=== PATIENT | female | born 1935 | race Caucasian/White ===

== ENCOUNTER 2024-01-10 04:00 | Inpatient (IN) | payer SELFPAY ==
[~2024-01-10] VITALS: Ht 129.5 cm; Wt 49.9 kg
[2024-01-10 05:05] LABS: HEMATOCRIT. 40.9 % (36.0-48.0); HEMOGLOBIN. 13.8 g/dL (12.0-16.0); MEAN CORPUSCULAR HEMOGLOBIN 29.3 pg (28.0-32.0); MEAN CORPUSCULAR HGB CONC 33.8 g/dL (31.0-37.0); MEAN CORPUSCULAR VOLUME 86.7 fL (81.0-99.0); MEAN PLATELET VOLUME 8.9 fl (7.4-10.4); PLATELET 317 x1000/uL (130-400); RED BLOOD CELL COUNT 4.72 mill/uL (4.2-5.4); RED CELL DISTRIBUTION WIDTH 13.5 % (11.6-14.6); WHITE BLOOD COUNT 11.4 x1000/uL (4.5-11.0)
[2024-01-10 05:14] LABS: CARBON DIOXIDE 30 mEq/L (21-32); CHLORIDE 94 mEq/L (98-107); POTASSIUM 4.6 mEq/L (3.5-5.1); SODIUM 130 mEq/L (136-145)
[2024-01-10 05:15] LABS: CALCIUM 9.9 mg/dL (8.7-10.4)
[2024-01-10 05:19] LABS: CREATININE 0.8 mg/dL (0.6-1.0)
[2024-01-10 05:20] LABS: GLUCOSE 177 mg/dL (70-105); UREA NITROGEN BLOOD 18 mg/dL (9-23)
[2024-01-10 05:21] LABS: ALANINE AMINOTRANSFERASE 27 IU/L (10-49); ALBUMIN 4.3 g/dL (3.2-4.8); ASPARTATE AMINOTRANSFERASE 32 IU/L (<34)
[2024-01-10 05:22] LABS: BILIRUBIN DIRECT 0.4 mg/dL (<=3.0); PROTEIN TOTAL 7.6 g/dL (6.0-8.3); TROPONIN I HIGH SENSITIVITY 28 ng/L (3.0-34)
[2024-01-10 05:32] LABS: BG BASE EXCESS 4.7 mmol/L (-2.0-2.0); BG CARBOXYHEMOGLOBIN 0.4 % (0.5-1.5); BG DEOXYHEMOGLOBIN 4.3 % (0.0-5.0); BG FRACTION INSPIRED OXYGEN 32; BG HCO3 ACT 32.5 mmol/L (22.0-26.0); BG METHEMOGLOBIN 0.2 % (0.0-1.5); BG OXYGEN SATURATION 95.7 % (92.0-98.5); BG OXYHEMOGLOBIN 95.1 % (94.0-97.0); BG PCO2 63.8 mmHg (35.0-45.0); BG PH 7.325 (7.350-7.450); BG PO2 84.6 mmHg (75.0-100.0); BG SAMPLE SITE RIGHT BRACHIAL; BG TOTAL HEMOGLOBIN 12.9 g/dL (12.0-18.0); BG VENT MODE NASAL CANNULA
[2024-01-10] MEDS: METHYLPREDNISOLONE SOD SUCC 125MG/2ML (ACT-O-VIAL) IV NR (05:33)
[2024-01-10 05:45] LABS: DIFFERENTIAL COMMENT 1
[2024-01-10 05:59] VITALS: RESP 20
[2024-01-10 06:08] VITALS: RESP 20
[2024-01-10] MEDS: IPRATROPIUM/ALBUTEROL 0.5-3(2.5)MG/3ML NEB HHN NR (06:08)
[2024-01-10 09:00] VITALS: RESP 18
[2024-01-10 09:26] LABS: BG BASE EXCESS 4.9 mmol/L (-2.0-2.0); BG CARBOXYHEMOGLOBIN 0.5 % (0.5-1.5); BG FRACTION INSPIRED OXYGEN 60; BG HCO3 ACT 31.9 mmol/L (22.0-26.0); BG METHEMOGLOBIN 0.1 % (0.0-1.5); BG OXYHEMOGLOBIN 97.4 % (94.0-97.0); BG PCO2 58.5 mmHg (35.0-45.0); BG PH 7.355 (7.350-7.450); BG PO2 106.1 mmHg (75.0-100.0); BG SAMPLE SITE RIGHT RADIAL; BG TOTAL HEMOGLOBIN 12.6 g/dL (12.0-18.0); BG VENT MODE MASK - BIPAP
[2024-01-10] MEDS ORDERED: IPRATROPIUM/ALBUTEROL 0.5-3(2.5)MG/3ML NEB HHN PRN (09:30)
[2024-01-10 09:34] LABS: PLATELET ESTIMATE NORMAL
[2024-01-10] MEDS: METHYLPREDNISOLONE SOD SUCC 40MG/ML (ACT-O-VIAL) IV SCH (11:01)
[2024-01-10] MEDS: CEFTRIAXONE 1GM/50ML 50 ML IV SCH (12:50)
[2024-01-10] MEDS: PREDNISONE 20MG TABLET PO SCH (12:50)
[2024-01-10 13:35] VITALS: PULSE 94; RESP 13; O2SAT 96
[2024-01-10] MEDS: BENZONATATE 100MG CAPSULE PO SCH (13:39)
[2024-01-10 18:03] VITALS: PULSE 91; RESP 18; O2SAT 97
[2024-01-10] MEDS: IPRATROPIUM/ALBUTEROL 0.5-3(2.5)MG/3ML NEB HHN SCH (18:03)
[2024-01-10 20:24] VITALS: PULSE 99; RESP 18
[2024-01-10] MEDS ORDERED: CLONIDINE 0.1MG TABLET PO PRN (22:45)
[2024-01-10] MEDS ORDERED: ONDANSETRON HCL 4MG/2ML INJ IV PRN (22:45)
[2024-01-10] MEDS ORDERED: ACETAMINOPHEN 325MG TABLET PO PRN (22:45)
[2024-01-10] MEDS ORDERED: DEXTROSE 50% WATER 50ML SYRINGE IV PRN (22:45)
[2024-01-10] MEDS: SODIUM CHLORIDE 0.9% 1,000 ML IV SCH (23:47)
[2024-01-11] VITALS (10 sets, daily range): BP systolic 107–153; BP diastolic 54–63; PULSE 100–112; RESP 18–20; TEMP 97.4–98.6; O2SAT 93
[2024-01-11] MEDS: BLOOD SUGAR DIAGNOSTIC STRIP TEST SCH (06:16)
[2024-01-11] MEDS: INSULIN LISPRO 100 UNITS/ML SUBCUT SCH (06:31)
[2024-01-11 06:44] LABS: HEMATOCRIT. 34.9 % (36.0-48.0); HEMOGLOBIN. 11.4 g/dL (12.0-16.0); MEAN CORPUSCULAR HEMOGLOBIN 28.3 pg (28.0-32.0); MEAN CORPUSCULAR HGB CONC 32.6 g/dL (31.0-37.0); MEAN PLATELET VOLUME 9.4 fl (7.4-10.4); PLATELET 286 x1000/uL (130-400); RED BLOOD CELL COUNT 4.02 mill/uL (4.2-5.4); RED CELL DISTRIBUTION WIDTH 13.4 % (11.6-14.6); WHITE BLOOD COUNT 13.9 x1000/uL (4.5-11.0)
[2024-01-11 06:50] LABS: POTASSIUM 4.8 mEq/L (3.5-5.1)
[2024-01-11 06:51] LABS: CALCIUM 9.1 mg/dL (8.7-10.4)
[2024-01-11 06:55] LABS: CREATININE 0.9 mg/dL (0.6-1.0)
[2024-01-11 07:47] LABS: CLARITY URINE CLEAR (CLEAR); COLOR URINE YELLOW (YELLOW); GLUCOSE URINE TRACE (NEGATIVE); KETONES URINE TRACE (NEGATIVE); LEUKOCYTE ESTERASE URINE TRACE (NEGATIVE); NITRITE URINE NEGATIVE (NEGATIVE); OCCULT BLOOD URINE NEGATIVE (NEGATIVE); PROTEIN URINE TRACE (NEGATIVE)
[2024-01-11 08:02] LABS: DIFFERENTIAL COMMENT 1
[2024-01-11 08:15] LABS: *AMPHETAMINES SCREEN URINE NEGATIVE (NEGATIVE); *BARBITURATES SCREEN URINE NEGATIVE (NEGATIVE); *COCAINE SCREEN URINE NEGATIVE (NEGATIVE); ECSTASY MDMA SCREEN URINE NEGATIVE (NEGATIVE); METHADONE URINE SCREEN NEGATIVE (NEGATIVE); OPIATES URINE SCREEN NEGATIVE (NEGATIVE); PHENCYCLIDINE URINE SCREEN NEGATIVE (NEGATIVE)
[2024-01-11 08:23] LABS: SQUAMOUS EPITHELIAL CELL URINE RARE /lpf (RARE/1+)
[2024-01-11 08:24] LABS: RBC URINE NONE SEEN /hpf (0-2)
[2024-01-11 08:25] LABS: BACTERIA URINE TRACE
[2024-01-11] MEDS: PANTOPRAZOLE SODIUM 40 MG/VIAL IV SCH (09:46)
[2024-01-11] MEDS: ENOXAPARIN 30MG/0.3ML SYR SUBCUT SCH (09:47)
[2024-01-11] MEDS: CEFTRIAXONE 1GM/50ML 50 ML IV SCH (13:47)
[2024-01-11] MEDS ORDERED: P20 MT (16:28)
[2024-01-11] MEDS ORDERED: FLUT1DIS6 INH (16:28)
[2024-01-11] MEDS ORDERED: BENZ100C86 PO (16:28)
[2024-01-11] MEDS ORDERED: ALBU6.7H15 INH (16:28)
[2024-01-11] MEDS ORDERED: CIPR-264 MT (16:41)
[2024-01-11 18:26] LABS: CREATINE KINASE MB FRACTION 2.9 ng/mL (0.5-3.6)
[2024-01-11 19:46] LABS: PLATELET ESTIMATE NORMAL
== END 2024-01-11 18:33 | disposition home or self-care (01) | DRG 133 ==
LOC: ER 04:00 → EDBEDREQSVC 06:10 → 5WST 06:14 → EDBEDREQTM 06:23 → EDBEDREQSVC 11:48 → 8WST 01-11 00:30
PROVIDERS: ADMIT Internal Medicine; ATTEND Internal Medicine
PROC: 5A09357 Assistance with Respiratory Ventilation, Less than 24 Consecutive Hours, Continuous Positive Airway Pressure (ICD-10-PCS; principal; 2024-01-10)
DX: J96.01 Acute respiratory failure with hypoxia (principal); E44.0 Moderate protein-calorie malnutrition; J44.9 Chronic obstructive pulmonary disease, unspecified; E87.1 Hypo-osmolality and hyponatremia; I10 Essential (primary) hypertension; N39.0 Urinary tract infection, site not specified; Z68.29 Body mass index [BMI] 29.0-29.9, adult
CPT/HCPCS: 36415; 36600; 71045; 80048; 80076; 80305; 81003; 82375; 82550; 82553; 82805; 82962; 83036; 83605; 83880; 84145; 84484; 85025; 93005; 93970; 94640; 94660; 99291; C9113; J0696; J1650; J1815; J2919; J2920; J7030; J7512